=== PATIENT | male | born 2005 | race Two or more races ===

== ENCOUNTER 2025-08-07 12:04 | Emergency (ER) | payer OTHER ==
[~2025-08-07] VITALS: Ht 185.4 cm; Wt 83.9 kg
[2025-08-07 12:20] VITALS: BP 147/86; O2SAT 99
[2025-08-07] MEDS ORDERED: LIDOCAINE HCL 1% 10ML VIAL ONE (13:10)
[2025-08-07] MEDS ORDERED: LIDOCAINE HCL 1% 2ML VIAL IJ ONE (13:15)
== END 2025-08-07 14:25 | disposition home or self-care (01) ==
LOC: ER 12:04
DX: S01.112A Laceration without foreign body of left eyelid and periocular area, initial encounter (principal); X58.XXXA Exposure to other specified factors, initial encounter; Y93.89 Activity, other specified; Y92.828 Other wilderness area as the place of occurrence of the external cause; Y99.8 Other external cause status